=== PATIENT | female | born 1970 | race Caucasian/White ===

== ENCOUNTER 2017-03-16 09:33 | Emergency (ER) | payer OTHER ==
[~2017-03-16] VITALS: Ht 165.1 cm; Wt 78.2 kg
[~2017-03-16 09:33] MED LIST: ALLEGRA60 MG PO; CARAFATE 1GM1 G PO; CETIRIZINE PO; COLACE 100100 MG/CAP PO; COUMADIN 22.5 MG/TAB PO; COUMADIN 5MG5 MG/TAB PO; CYMBALTA 60MG60 MG PO; DOXYCYCLINE 10100 MG PO; EPI EZ PEN1 MG/ML IM; IRON CHELATED325 MG PO; IRON325 M1 PO; K-DUR 2020 MEQ PO; LOVENOX 4040 MG/0.4 SQ; LOVENOX 8080 MG/0.8 SQ; MIRALAX 255 GM255 GM PO; MOTRIN 600600 MG/TAB PO; MULTIPLE VITAMI1 CAP PO; MULTIPLE VITAMI1 TAB PO; MVI PO; NAPROSYN500 MG PO; NATURAL E400 IU PO; OXYCONTIN60 MG PO; PERCOCET 325 MG1 TA2 PO; PERCOCET 325 MG1 TAB PO; PLAVIX 75MG TAB75 MG PO; PREDNISONE20 MG PO; PRENATAL1 TA3 PO; PREVACID 15MG15 M1 PO; PRILOSEC 20MG20 MG PO; PROMETHAZINE12.5 M5 PO; ROBAXIN 75750 MG/TAB PO; SENOKOT8.6 MG PO; ULTRAM 50MG TAB50 MG PO; VITAMIN B1225 MCG PO; VITAMIN C BUFF500 MG PO; VITAMIN C1 TAB PO; VITAMIN C500 MG PO; VITAMIN D 1001000 IU PO; VITAMIN D PO; VITAMIN D1000 IU PO; XARELTO20 MG PO; ZOFRAN 4MG T4 MG/TAB PO; ZYRTEC 10MG10 MG PO; ZYRTEC-D 12HR 51 TER PO; [UNRECOGNIZED DRUG - OTHER]
[2017-03-16 09:35] VITALS: TEMP 97.4
[2017-03-16 10:52] LABS: BASO % 0.4 % (0.0-2.0); EOS # 0.1 (0.0-0.7); EOS % 0.9 % (0-4.0); GRAN % 50.8 % (42.2-75.2); HEMATOCRIT 38.3 % (37.0-47.0); HEMOGLOBIN 13.5 g/dl (12.5-16.0); LYMPH # 3.2 (1.2-3.4); MEAN CELL VOLUME 83 fl (80.0-100.0); MEAN CORPUSCULAR HEMOGLOBIN 29 pg (27.0-31.0); MEAN CORPUSCULAR HGB CONC 35 g/dl (33.0-37.0); MEAN PLATELET VOLUME 8.3 fl (7.4-10.4); MONO # 0.5 (0.1-0.6); MONO % 6.3 % (1.7-9.3); PLATELET COUNT 350 K/mm3 (130-400); RED BLOOD COUNT 4.59 M/mm3 (4.10-5.30); WHITE BLOOD COUNT 7.8 K/mm3 (4.8-10.8)
[2017-03-16 10:55] LABS: ADJUSTED CALCIUM 8.9 mg/dL (8.4-10.2); ALANINE AMINOTRANSFERASE 21 U/L (9-52); ALBUMIN 4.4 gm/dL (3.5-5.0); ALKALINE PHOSPHATASE 85 U/L (50-136); ANION GAP 19 mmol/L (7-16); BILIRUBIN,TOTAL 0.6 mg/dL (0.0-1.0); BLOOD UREA NITROGEN 14 mg/dL (7-17); CALCIUM 9.2 mg/dL (8.4-10.2); CARBON DIOXIDE 20 mmol/L (22-30); CHLORIDE 101 mmol/L (98-107); CREATININE, serum 0.74 mg/dL (0.52-1.25); GLUCOSE 122 mg/dL (74-106); POTASSIUM 3.7 mmol/L (3.4-5.0); SODIUM 140 mmol/L (137-145); TOTAL PROTEIN 7.1 gm/dL (6.4-8.2)
[2017-03-16 11:51] VITALS: BP 135/90; PULSE 91
[2017-03-16] MEDS ORDERED: PROAIR HFA0.09 MG/AC IH (13:10)
[2017-03-16] MEDS ORDERED: PHENERGAN W/CO120 M1 PO (13:10)
[2017-03-16] MEDS ORDERED: ZITHROMAX Z PA250 MG PO (13:10)
[2017-03-16] MEDS ORDERED: ATIVAN 1MG T1 MG/TAB PO (13:10)
[2017-03-16 13:24] LABS: TROPONIN-I < 0.012 ng/mL (0.000-0.034)
== END 2017-03-16 13:54 | disposition home or self-care (01) ==
LOC: COL.ER 09:33
PROVIDERS: Nurse Practitioner
DX: R06.02 Shortness of breath (principal); J40 Bronchitis, not specified as acute or chronic; F41.9 Anxiety disorder, unspecified; R06.4 Hyperventilation; R55 Syncope and collapse; G43.909 Migraine, unspecified, not intractable, without status migrainosus; J45.909 Unspecified asthma, uncomplicated; D68.51 Activated protein C resistance; Z79.01 Long term (current) use of anticoagulants; Z86.718 Personal history of other venous thrombosis and embolism
CPT/HCPCS: J1100; J2060; J7030

== ENCOUNTER → 2017-04-15 | Outpatient (REF) ==
[~2017-04-15] MED LIST changes: +AMOXICILLIN 8751 TAB PO; +ATIVAN 1MG T1 MG/TAB PO; +PHENERGAN W/CO120 M1 PO; +PROAIR HFA0.09 MG/AC IH; +ZITHROMAX Z PA250 MG PO
== END ==
LOC: WSOH 09:00
DX: Z02.89 Encounter for other administrative examinations (principal)

== ENCOUNTER 2017-05-18 21:39 | Emergency (ER) | payer SELFPAY ==
[~2017-05-18] VITALS: Ht 165.1 cm; Wt 77.3 kg
[~2017-05-18 21:39] MED LIST changes: -AMOXICILLIN 8751 TAB PO
[2017-05-18 21:44] VITALS: BP 148/81; TEMP 98.8
[2017-05-18] MEDS ORDERED: AMOXICILLIN 8751 TAB PO (23:12)
[2017-05-18 23:38] VITALS: PULSE 67
== END 2017-05-18 23:38 | disposition home or self-care (01) ==
LOC: COL.ER 21:39
DX: S41.141A Puncture wound with foreign body of right upper arm, initial encounter (principal); J45.909 Unspecified asthma, uncomplicated; Z86.718 Personal history of other venous thrombosis and embolism; W22.09XA Striking against other stationary object, initial encounter; W45.8XXA Other foreign body or object entering through skin, initial encounter; Y92.009 Unspecified place in unspecified non-institutional (private) residence as the place of occurrence of the external cause

== ENCOUNTER 2018-05-27 13:50 | Emergency (ER) | payer OTHER ==
[~2018-05-27] VITALS: Ht 165.1 cm; Wt 90.9 kg
[~2018-05-27 13:50] MED LIST changes: +AMOXICILLIN 8751 TAB PO
[2018-05-27 14:12] VITALS: BP 157/87; PULSE 91; TEMP 99.1
[2018-05-27] MEDS ORDERED: FLEXERIL 1010 MG/TAB PO (15:28)
== END 2018-05-27 15:54 | disposition home or self-care (01) ==
LOC: COL.ER 13:50
DX: S39.012A Strain of muscle, fascia and tendon of lower back, initial encounter (principal); Z90.89 Acquired absence of other organs; Z90.49 Acquired absence of other specified parts of digestive tract; Z98.51 Tubal ligation status; X50.0XXA Overexertion from strenuous movement or load, initial encounter
CPT/HCPCS: J1885

== ENCOUNTER 2018-06-12 13:59 | Outpatient (RCR) | payer OTHER ==
[~2018-06-12 13:59] MED LIST changes: +FLEXERIL 1010 MG/TAB PO
== END 2018-08-27 | disposition home or self-care (01) ==
LOC: WSOH
DX: S39.012A Strain of muscle, fascia and tendon of lower back, initial encounter (principal); M62.830 Muscle spasm of back; X50.0XXA Overexertion from strenuous movement or load, initial encounter; Y93.F2 Activity, caregiving, lifting; Y92.538 Other ambulatory health services establishments as the place of occurrence of the external cause; Y99.0 Civilian activity done for income or pay; Z79.899 Other long term (current) drug therapy

== ENCOUNTER → 2018-12-11 | Outpatient (CLI) | payer OTHER | LOC: COL.RAD 08:40 | DX: G43.009 Migraine without aura, not intractable, without status migrainosus (principal) ==

== ENCOUNTER → 2019-06-25 | Outpatient (CLI) | payer OTHER | LOC: MC.RAD 06-15 08:15 | DX: Z12.31 Encounter for screening mammogram for malignant neoplasm of breast (principal) ==

== ENCOUNTER → 2020-03-11 | Outpatient (CLI) | payer OTHER ==
[2020-03-11 12:49] LABS: HEMATOCRIT 39.5 % (37.0-47.0); HEMOGLOBIN 13.4 g/dl (12.5-16.0); MEAN CELL VOLUME 88 fl (80.0-100.0); MEAN CORPUSCULAR HEMOGLOBIN 30 pg (27.0-31.0); MEAN CORPUSCULAR HGB CONC 34 g/dl (33.0-37.0); MEAN PLATELET VOLUME 8.4 fl (7.4-10.4); PLATELET COUNT 332 K/mm3 (130-400); RED BLOOD COUNT 4.47 M/mm3 (4.10-5.30); REDCELL DISTRIBUTION WIDTH-CV 13.4 % (11.5-14.5)
[2020-03-11 12:52] LABS: ALBUMIN 4.4 gm/dL (3.5-5.0); BILIRUBIN,TOTAL 0.4 mg/dL (0.0-1.0); CALCIUM 9.3 mg/dL (8.4-10.2); CHOLESTEROL RISK RATIO 3.4; CREATININE, serum 0.63 (0.52-1.25); MAGNESIUM 1.9 mg/dL (1.6-2.3); POTASSIUM 4.7 mmol/L (3.4-5.0); TOTAL PROTEIN 7.6 gm/dL (6.4-8.2)
[2020-03-11 13:28] LABS: THYROID STIMULATING HORMONE 1.42 uIU/mL (0.465-4.680)
== END ==
LOC: COL.LAB 11:50
PROVIDERS: Family Medicine
DX: G43.009 Migraine without aura, not intractable, without status migrainosus (principal); E03.9 Hypothyroidism, unspecified

== ENCOUNTER → 2020-08-04 | Outpatient (CLI) | payer OTHER ==
[2020-08-04 16:42] LABS: INR 1.6 (0.8-3.0); PROTHROMBIN TIME 17.8 SECONDS (9.7-12.8)
[2020-08-04 16:44] LABS: BASO # 0.1 (0.0-0.2); BASO % 0.7 % (0.0-2.0); EOS # 0.3 (0.0-0.7); EOS % 3.6 % (0-4.0); GRAN # 4.2 (1.4-6.5); GRAN % 56.1 % (42.2-75.2); HEMATOCRIT 46.5 % (37.0-47.0); HEMOGLOBIN 16.2 g/dl (12.5-16.0); LYMPH # 2.5 (1.2-3.4); LYMPH % 33.9 % (20.0-51.0); MEAN CELL VOLUME 87 fl (80.0-100.0); MEAN CORPUSCULAR HEMOGLOBIN 30 pg (27.0-31.0); MEAN CORPUSCULAR HGB CONC 35 g/dl (33.0-37.0); MONO # 0.4 (0.1-0.6); MONO % 5.6 % (1.7-9.3); PLATELET COUNT 397 K/mm3 (130-400); RED BLOOD COUNT 5.37 M/mm3 (4.10-5.30); REDCELL DISTRIBUTION WIDTH-CV 12.8 % (11.5-14.5)
[2020-08-04 16:52] LABS: C-REACTIVE PROTEIN 2.1 mg/dL (0.0-0.9); CALCIUM 9.7 mg/dL (8.4-10.2); CREATININE, serum 0.67 (0.52-1.25); POTASSIUM 4.5 mmol/L (3.4-5.0)
[2020-08-04 17:17] LABS: ERYTHROCYTE SEDIMENTATION RATE 9 mm/hr (0-20)
== END ==
LOC: COL.LAB 16:05
PROVIDERS: Family Medicine
DX: Z01.89 Encounter for other specified special examinations (principal)

== ENCOUNTER → 2020-09-22 | Outpatient (CLI) | payer OTHER | LOC: MC.RAD 11:37 | DX: Z12.31 Encounter for screening mammogram for malignant neoplasm of breast (principal) ==

== ENCOUNTER → 2020-09-29 | Outpatient (CLI) | payer OTHER ==
[2020-09-29 13:41] LABS: COLLECTION METHOD CLEAN CATCH
[2020-09-29 13:45] LABS: BASO % 0.5 % (0.0-2.0); EOS # 0.3 (0.0-0.7); EOS % 3.1 % (0-4.0); GRAN # 4.7 (1.4-6.5); GRAN % 58.2 % (42.2-75.2); HEMATOCRIT 43.1 % (37.0-47.0); LYMPH # 2.6 (1.2-3.4); LYMPH % 32.1 % (20.0-51.0); MEAN CELL VOLUME 87 fl (80.0-100.0); MEAN CORPUSCULAR HEMOGLOBIN 30 pg (27.0-31.0); MEAN CORPUSCULAR HGB CONC 35 g/dl (33.0-37.0); MEAN PLATELET VOLUME 8.2 fl (7.4-10.4); MONO # 0.5 (0.1-0.6); PLATELET COUNT 420 K/mm3 (130-400); RED BLOOD COUNT 4.94 M/mm3 (4.10-5.30); REDCELL DISTRIBUTION WIDTH-CV 13.2 % (11.5-14.5)
[2020-09-29 13:48] LABS: MUCOUS Present /lpf; PH 5 (5-8); URINE APPEARANCE Clear; URINE BACTERIA Rare /hpf; URINE BILIRUBIN Negative (NEGATIVE); URINE BLOOD 1+ (NEGATIVE); URINE COLOR Yellow; URINE GLUCOSE Negative (NEGATIVE); URINE KETONE Negative (NEGATIVE); URINE LEUKOCYTE ESTERASE Negative (NEGATIVE); URINE NITRATE Negative (NEGATIVE); URINE PROTEIN(semi-quant) Negative (NEGATIVE); URINE UROBILINOGEN Negative (NEGATIVE); URINE WBC 0-2 /hpf
[2020-09-29 13:56] LABS: ALBUMIN 4.7 gm/dL (3.5-5.0); BILIRUBIN,TOTAL 0.5 mg/dL (0.0-1.0); CREATININE, serum 0.72 (0.52-1.25); MAGNESIUM 1.9 mg/dL (1.6-2.3); POTASSIUM 3.7 mmol/L (3.4-5.0); TOTAL PROTEIN 8.2 gm/dL (6.4-8.2)
[2020-09-29 14:27] LABS: THYROID STIMULATING HORMONE 0.792 uIU/mL (0.465-4.680)
[2020-09-29 21:28] LABS: URINE MICROALBUMIN 1.4 mg/dL (0.0-1.7)
[2020-09-29 21:47] LABS: DHEA (SULFATE) 128 mcg/dL (56-283); ESTRADIOL 67 pg/mL (())
== END ==
LOC: COL.LAB 09:40
PROVIDERS: Family Medicine
DX: Z01.818 Encounter for other preprocedural examination (principal); E11.9 Type 2 diabetes mellitus without complications; E03.9 Hypothyroidism, unspecified; N95.1 Menopausal and female climacteric states; G43.019 Migraine without aura, intractable, without status migrainosus

== ENCOUNTER → 2021-02-06 | Outpatient (CLI) | payer OTHER ==
[~2021-02-06] MED LIST changes: +ELIQUIS 2.5 PO; +NORCO 325 MG-51 TAB PO; +SSD25 GM TP
[2021-02-06 13:06] LABS: CALCIUM 9.5 mg/dL (8.4-10.2); CREATININE, serum 0.75 (0.52-1.25); POTASSIUM 4.3 mmol/L (3.4-5.0)
== END ==
LOC: COL.LAB 11:53
PROVIDERS: Family Medicine
DX: E10.8 Type 1 diabetes mellitus with unspecified complications (principal)

== ENCOUNTER 2021-04-04 12:41 | Emergency (ER) | payer OTHER ==
[~2021-04-04] VITALS: Ht 167.6 cm; Wt 91.8 kg
[~2021-04-04 12:41] MED LIST changes: -ELIQUIS 2.5 PO; -NORCO 325 MG-51 TAB PO; -SSD25 GM TP
[2021-04-04 12:46] VITALS: TEMP 97.6
[2021-04-04] MEDS ORDERED: NORCO 325 MG-51 TAB PO (12:56)
[2021-04-04] MEDS ORDERED: SSD25 GM TP (12:56)
[2021-04-04 13:06] VITALS: BP 158/102; PULSE 86
[2021-04-04] MEDS ORDERED: ELIQUIS 2.5 PO (13:07)
== END 2021-04-04 13:12 | disposition home or self-care (01) ==
LOC: COL.ER 12:41
DX: T20.02XA Burn of unspecified degree of lip(s), initial encounter (principal); T20.03XA Burn of unspecified degree of chin, initial encounter; T20.07XA Burn of unspecified degree of neck, initial encounter; R51.9 Headache, unspecified; H93.13 Tinnitus, bilateral; W39.XXXA Discharge of firework, initial encounter
CPT/HCPCS: J1885

== ENCOUNTER → 2021-04-06 | Outpatient (CLI) | payer OTHER ==
[~2021-04-06] MED LIST changes: +ELIQUIS 2.5 PO; +NORCO 325 MG-51 TAB PO; +SSD25 GM TP
[2021-04-06 17:53] LABS: BASO % 0.5 % (0.0-2.0); EOS # 0.4 (0.0-0.7); EOS % 4.7 % (0-4.0); GRAN # 3.6 (1.4-6.5); GRAN % 49.3 % (42.2-75.2); HEMOGLOBIN 12.6 g/dl (12.5-16.0); LYMPH # 2.7 (1.2-3.4); LYMPH % 36.7 % (20.0-51.0); MEAN CELL VOLUME 88 fl (80.0-100.0); MEAN CORPUSCULAR HEMOGLOBIN 30 pg (27.0-31.0); MEAN CORPUSCULAR HGB CONC 34 g/dl (33.0-37.0); MEAN PLATELET VOLUME 8.6 fl (7.4-10.4); MONO # 0.6 (0.1-0.6); MONO % 7.6 % (1.7-9.3); PLATELET COUNT 413 K/mm3 (130-400); RED BLOOD COUNT 4.19 M/mm3 (4.10-5.30); REDCELL DISTRIBUTION WIDTH-CV 13.2 % (11.5-14.5)
[2021-04-06 17:59] LABS: HEMATOCRIT 36.7 % (37.0-47.0)
[2021-04-06 18:06] LABS: BILIRUBIN,TOTAL 0.3 mg/dL (0.0-1.0); C-REACTIVE PROTEIN 1.8 mg/dL (0.0-0.9); CALCIUM 9.6 mg/dL (8.4-10.2); CREATININE, serum 0.72 (0.52-1.25); TOTAL PROTEIN 7.2 gm/dL (6.4-8.2)
[2021-04-06 18:31] LABS: ERYTHROCYTE SEDIMENTATION RATE 19 mm/hr (0-20)
[2021-04-06 18:34] LABS: THYROID STIMULATING HORMONE 1.33 uIU/mL (0.465-4.680)
[2021-04-08 04:55] LABS: T3 FREE (TRI-IODOTHYRONINE) 2.7 pg/mL (())
== END ==
LOC: COL.LAB 16:40
PROVIDERS: Family Medicine
DX: E11.40 Type 2 diabetes mellitus with diabetic neuropathy, unspecified (principal); M32.9 Systemic lupus erythematosus, unspecified; G47.30 Sleep apnea, unspecified; G43.719 Chronic migraine without aura, intractable, without status migrainosus; J30.2 Other seasonal allergic rhinitis; F33.9 Major depressive disorder, recurrent, unspecified; Z86.718 Personal history of other venous thrombosis and embolism

== ENCOUNTER 2022-01-25 17:24 | Emergency (ER) | payer OTHER ==
[~2022-01-25] VITALS: Ht 165.1 cm; Wt 103.6 kg
[2022-01-25 19:58] VITALS: BP 166/108; PULSE 100; TEMP 97
== END 2022-01-25 19:58 | disposition home or self-care (01) ==
LOC: COL.ER 17:24
DX: S30.0XXA Contusion of lower back and pelvis, initial encounter (principal); S20.224A Contusion of middle back wall of thorax, initial encounter; S70.01XA Contusion of right hip, initial encounter; Z98.1 Arthrodesis status; V49.40XA Driver injured in collision with unspecified motor vehicles in traffic accident, initial encounter; Y92.410 Unspecified street and highway as the place of occurrence of the external cause
CPT/HCPCS: J1170; Q9967